=== PATIENT | male | born 1985 | race Caucasian/White ===

== ENCOUNTER → 2016-08-03 | Outpatient (CLI) | payer OTHER ==
--- NOTE | 2016-08-04 08:50 | CARD ---
APPROVED REPORT INDICATION Chest Pain RISK FACTORS Smoking PROCEDURE The patient underwent an Exercise Stress Test using the Noel Protocol. Blood pressure, heart rate, a nd EKG were monitored. An Echocardiogram was performed by set up mold technician in four stages in quad fashion. At peak stress four se lected images were obtained and placed side by side with resting images for comparison. STRESS ECHO FINDINGS The resting Echocardiogram showed normal left ventricular contractility with an estimated Ejection Fr action of about 60 %. Normal augmentation of myocardial wall segments using a 16 segment model. Test Type: Exercise Stress Nurse/Tech: Marin Gunter RN Test Indications: chest pain Cardiac History and Allergies: see ehr Medications: see ehr Medical History: see ehr Resting ECG: SR Resting Heart Rate: 83 bpm Resting Blood Pressure: 144/94mmHg Pretest Chest Pain: None Nurse/Tech Notes Lungs CTA, S1, S2 Consent: The procedure was explained to the patient in lay terms. Informed consent was witnessed. David eout was entered into [employer]. History and Stress Test performed by Marin Gunter R.N. Stress Symptoms No chest pain or symptoms. POST EXERCISE Reason for Termination: Reached target heart rate Target HR: Yes Max HR: 185 bpm 98% of Maximum Predicted HR: 188 bpm Exercise duration: 11:03 min:sec, 4 Stage Exercise capacity: 12.8METs Max Blood Pressure: 185/63mmHg Blood Pressure response to exercise: Normal blood pressure response during stress. Chest Pain: No. Arrhythmia: No. ST Change: No. INTERPRETATION Stress EKG Conclusion: Baseline EKG showed sinus rhythm. No ischemic changes at peak stress. No arr hythmias. RESTING ECG Rhythm: Sinus STRESS ECG Rhythm: Sinus Tachycardia Arrhythmias: None <Conclusion> Treadmill exercise stress echocardiogram did not show any evidence of ischemia or infarct. Normal left ventricle systolic function with ejection fraction estimated at 60%. Patient had good activity tolerance. Low risk for cardiac events.
== END | disposition home or self-care (01) ==
LOC: ECHO 12:36
PROVIDERS: ATTEND Internal Medicine Cardiovascular Disease
DX: R07.9 Chest pain, unspecified (principal)
CPT/HCPCS: 93017; 93350